=== PATIENT | female | born 1980 | race Caucasian/White ===

== ENCOUNTER → 2020-04-26 13:01 | Outpatient (CLI) | payer BC, SELFPAY ==
[2020-04-26 14:01] LABS: Free T4 (Free Thyroxine) 1.25 ng/dl (0.78-2.19)
[2020-04-26 14:15] LABS: Thyroid Stimulating Hormone 0.85 uIU/mL (0.465-4.68)
== END ==
PROVIDERS: Visit Provider Family Medicine
DX: E07.9 Disorder of thyroid, unspecified (principal)
CPT/HCPCS: 84439; 84443

== ENCOUNTER → 2021-03-19 13:31 | Outpatient (CLI) | payer BC, SELFPAY ==
--- NOTE | 2021-03-19 13:38 | XR_ITS ---
PROCEDURE: XR CHEST 2V CLINICAL HISTORY: SOA COMPARISON: No exams were available for comparison FINDINGS: The cardiomediastinal silhouette and pulmonary vascularity are within normal limits. The lungs are clear without infiltrates, suspicious nodules, or pleural effusions. No acute bony abnormalities. IMPRESSION: No acute findings. Dictated by: Kofi Cha MD 03/19/2021 14:14 Kofi Cha MD in [facility] 03/19/2021 14:14
== END ==
PROVIDERS: PCP Family Medicine; Visit Provider Nurse Practitioner Family
DX: R06.02 Shortness of breath (principal); J06.9 Acute upper respiratory infection, unspecified
CPT/HCPCS: 71046; 87070; 87186; 87205

== ENCOUNTER → 2021-06-26 18:16 | Outpatient (CLI) | payer BC, SELFPAY ==
[2021-06-26 19:21] LABS: Basophils % 0.5 % (0.1-2.0); Eosinophils # 0.3 K/mm3 (0.0-0.4); Eosinophils % 3.2 % (0.1-12.0); Hematocrit 38.6 % (37.0-47.0); Hemoglobin 12.6 g/dL (12.2-16.2); Lymphocytes # 2.7 K/mm3 (0.7-4.5); Lymphocytes % 33.7 % (10-50); Mean Corpuscular HGB Conc 32.7 g/dL (31.8-35.4); Mean Corpuscular Hemoglobin 31.9 pg (27.0-31.2); Mean Corpuscular Volume 97.5 fl (81-99); Mean Platelet Volume 10.1 fl (7.4-10.4); Monocytes # 0.4 K/mm3 (0.1-1.0); Monocytes % 4.4 % (1.7-9.3); Neutrophils # 4.6 K/mm3 (1.8-7.8); Neutrophils % 58.2 % (37.0-80.0); Platelet Count 339 K/mm3 (142-424); Red Blood Count 3.96 M/mm3 (4.20-5.40); Red Cell Distribution Width 14.1 % (11.5-17.5)
== END ==
PROVIDERS: Visit Provider Family Medicine
DX: E66.3 Overweight (principal); Z68.32 Body mass index [BMI] 32.0-32.9, adult
CPT/HCPCS: 85025

== ENCOUNTER → 2021-10-02 16:00 | Outpatient (CLI) | payer BC, SELFPAY ==
[2021-10-02 14:05] LABS: Chloride 99 mmol/L (98-107); Sodium 135 mmol/L (136-145)
[2021-10-02 14:06] LABS: Potassium 4.4 mmoL/L (3.5-5.1)
[2021-10-02 14:08] LABS: Alanine Aminotransferase 10 U/L (12-78); Albumin Level 4.5 g/dl (3.5-5.0); Alkaline Phosphatase 52 U/L (38-126); Anion Gap 11.4 mEq/L (5-15); Aspartate Amino Transferase 26 U/L (14-36); Bilirubin,Total 0.6 mg/dl (0.2-1.3); Blood Urea Nitrogen 9 mg/dl (7-17); Carbon Dioxide 29 mmol/L (22.0-30.0); Estimated Glomerular Filt Rate 79 ml/min (>60); GFR (African American) 96 ML/MIN (>60)
[2021-10-02 14:09] LABS: Albumin/Globulin Ratio 1.6 (1.1-1.8); Calcium 8.4 mg/dl (8.4-10.2); Globulin 2.9 g/dL (1.3-3.2); Glucose 87 mg/dl (74-100); Total Protein,Serum 7.4 g/dl (6.3-8.2)
[2021-10-02 14:18] LABS: Basophils % 0.3 % (0.1-2.0); Eosinophils # 0.3 K/mm3 (0.0-0.4); Eosinophils % 4.4 % (0.1-12.0); Hematocrit 42.4 % (37.0-47.0); Hemoglobin 13.9 g/dL (12.2-16.2); Lymphocytes # 1.6 K/mm3 (0.7-4.5); Lymphocytes % 28.3 % (10-50); Mean Corpuscular HGB Conc 32.8 g/dL (31.8-35.4); Mean Corpuscular Hemoglobin 31.5 pg (27.0-31.2); Mean Corpuscular Volume 96.2 fl (81-99); Mean Platelet Volume 8.4 fl (7.4-10.4); Monocytes # 0.4 K/mm3 (0.1-1.0); Monocytes % 6.5 % (1.7-9.3); Neutrophils # 3.5 K/mm3 (1.8-7.8); Neutrophils % 60.5 % (37.0-80.0); Platelet Count 378 K/mm3 (142-424); Red Blood Count 4.41 M/mm3 (4.20-5.40); Red Cell Distribution Width 13.5 % (11.5-17.5); White Blood Count 5.8 K/mm3 (4.8-10.8)
[2021-10-02 14:37] LABS: Thyroid Stimulating Hormone 0.12 uIU/mL (0.465-4.68)
[2021-10-04 09:05] LABS: Estradiol 92.1 pg/mL (.)
== END ==
PROVIDERS: Visit Provider Family Medicine
DX: N95.1 Menopausal and female climacteric states (principal)
CPT/HCPCS: 80053; 82670; 83001; 84443; 85025

== ENCOUNTER 2025-04-16 11:21 | Outpatient (CLI) | payer BC, SELFPAY ==
[2025-04-16 16:05] LABS: Alanine Aminotransferase 18 U/L (12-78); Albumin Level 4.2 g/dl (3.5-5.0); Albumin/Globulin Ratio 1.4 (1.1-1.8); Alkaline Phosphatase 75 U/L (38-126); Anion Gap 10.0 mEq/L (5-15); Aspartate Amino Transferase 31 U/L (14-36); Bilirubin,Total 0.4 mg/dl (0.2-1.3); Blood Urea Nitrogen 15 mg/dl (7-17); Calcium 9.1 mg/dl (8.4-10.2); Carbon Dioxide 27 mmol/L (22.0-30.0); Chloride 104 mmol/L (98-107); Cholesterol 237 mg/dl (140-200); Creatinine,Serum 0.80 mg/dl (0.52-1.04); Estimated Glomerular Filt Rate 78 ml/min (>60); GFR (African American) 94 ML/MIN (>60); Globulin 2.9 g/dL (1.3-3.2); Glucose 91 mg/dl (74-100); HDL Cholesterol 63 mg/dl (40-60); Potassium 4.0 mmoL/L (3.5-5.1); Sodium 137 mmol/L (136-145); Total Protein,Serum 7.1 g/dl (6.3-8.2); Triglycerides 114 mg/dl (30-150)
[2025-04-16 16:38] LABS: Hematocrit 36.2 % (37.0-47.0); Hemoglobin 11.4 g/dL (12.2-16.2); Immature Granulocytes % 0.3 %; Mean Corpuscular HGB Conc 31.5 g/dL (31.8-35.4); Mean Corpuscular Hemoglobin 27.5 pg (27.0-31.2); Mean Corpuscular Volume 87.2 fl (81-99); Nucleated Red Blood Cells % 0 %; Platelet Count 340 K/mm3 (142-424); Red Blood Count 4.15 M/mm3 (4.20-5.40); Red Cell Distribution Width-SD 46.7 fL; White Blood Count 6.5 K/mm3 (4.8-10.8)
--- OUTSIDE RECORDS SUMMARY | 2025-04-17 09:26 | XMS_ITS | Clinical Summary ---
Author Organization [facility] Address [address] [place] [address] Care Team Providers Care Inspector Packer Name Role Phone Matt Vaughan MD Primary Care Provider [phone] Allergies Active Allergy Reactions Criticality Noted Date Comments Gabapentin Other - please docum ent in the comment field Low 04/25/2015 made me crazy Hydrochlorothiazide Unknown - Patient st ates they do not know rxn details Low 04/25/2015 Montelukast Other - please docum ent in the comment field Low 04/25/2015 made me crazy Pickled Meat Anaphylaxis High 05/24/2024 Medications ALPRAZolam (Xanax) 2 MG tablet Take 1 tablet (2 mg) by mouth at night if needed. 05/09/2024 Active butalbital-acet aminophen-caffe ine 50-325-40 MG tablet Take 1 tablet by mouth if needed. 02/23/2024 Active FLUoxetine (PROzac) 60 MG tablet Take 1 tablet (60 mg) by mouth 1 (one) time each day. 05/18/2024 Active furosemide (Lasix) 40 MG tablet Take 1 tablet (40 mg) by mouth 1 (one) time each day if needed. 10/13/2023 Active methylphenidate (Concerta) 18 MG ER tablet Take 1 tablet (18 mg) by mouth 1 (one) time each day in the morning. 05/18/2024 Active omeprazole (PriLOSEC) [address] capsule Take 1 capsule (20 mg) by mouth 1 (one) time each day. 05/15/2024 Active potassium chloride CR 10 MEQ PO ER tablet Take 1 tablet (10 mEq) by mouth 1 (one) time each day if needed (when taking furosemide). Active traZODone (Desyrel) 50 MG tablet Take 1 tablet (50 mg) by mouth at night if needed. 05/18/2024 Active valACYclovir (Valtrex) 1 g tablet Take 1 tablet (1,000 mg) by mouth 1 (one) time each day if needed. Active loratadine (Claritin) 10 MG tablet Take 1 tablet (10 mg) by mouth 1 (one) time each day if needed. Active levothyroxine (Synthroid) 75 MCG tablet Take 1 tablet (75 mcg) by mouth Daily. Active apixaban (Eliquis) 5 MG tablet Take 2 tablets (10 mg) by mouth 2 (two) times a day for 5 days, THEN 1 tablet (5 mg) 2 (two) times a day. 370 tablet 05/26/2024 Active Active Problems Problem Noted Date Diagnosed Date Obesity (BMI 35.0-39.9 without comorbidity) 05/09 Severe obesity (BMI 35.0-39.9) with comorbidity 05/24/2024 Chest pain 05/24/2024 Social History Tobacco Use Types Packs/Day Years Used Date Smoking Tobacco: Former Cigarettes Tobacco Cessation:Counseling Given: Not Answered Comments Unknown Sex and Gender Information Value Date Recorded Sex Assigned at Not on file Legal Sex Female 8:54 PM EDT Gender Identity Not on file Sexual Orientation Not on file Last Filed Vital Signs Vital Sign Reading Time Taken Comments Blood Pressure 122/54 05/26/2024 1:00 PM EDT Pulse 78 05/26/2024 1:00 PM EDT Temperature 36.9 C (98.4 F) 05/26/2024 11:36 AM EDT Respiratory Rate 14 05/26/2024 1:00 PM EDT Oxygen Saturation 92% 05/26/2024 1:00 PM EDT Inhaled Oxygen Concentration - - Weight 107 kg (236 lb 8.9 oz) 05/26/2024 3:26 AM EDT Height 172.7 cm (5' 8 ) 05/24/2024 10:59 AM EDT Body Mass Index 35.97 05/24/2024 10:59 AM EDT Plan of Treatment Health Maintenance Due Date Last Done Comments [facility]-Depression Screening 1980 [facility]-HIV Screening 1980 [facility]-Hepatitis C Screening 1980 [facility]-/Child/Adol SDOH Screenings 1980 [facility]-Varicella Vaccines (1 of 2 - 13+ 2-dose series) 1993 [facility]-DTaP,Tdap,and Td Vaccine s (2 - Tdap) 02/26/1996 02/25/1996 [facility]- SDOH Screenings 1998 [facility]-Adult SDOH Screenings 1998 [facility]-Pap Smear 2001 HPV Vaccines (1 - 3-dose SCD M series) 2007 [facility]-Cervical Cancer Screening 2010 [facility]-HPV/Cotest 2010 [id number]-18 Vaccine (2 - Carmina risk series) 08/05/2021 07/08/2021 [facility]-Influenza Vaccine (#1) 2025 [facility]-Zoster Vaccines (1 of 2) 2030 [facility]-Hepatitis B Vaccines Completed 001, 10/19/2000, 09/21/2000 [facility]-Pneumococcal Vaccine: Pediatrics (0 to 5 Years) and At-Risk Patients (6 to 49 Years) Aged Out 01/31/2008 No longer eligible b ased on patient's age to complete this topic [facility]-Obesity Intervention Completed 05/24/2024 [facility]-HIB Vaccines Aged Out No longer e ligible based on patient's age to complete this topic [facility]-Hepatitis A Vaccines Aged Out No longer eligible based on patient's age to complete this topic [facility]-IPV Vaccines Aged Out No longer e ligible based on patient's age to complete this topic [facility]-Rotavirus Vaccines Aged Out No lo nger eligible based on patient's age to complete this topic Insurance [employer] Advance Directives * Full Code (Latest Code Status on File) Date Activated Date Inactivated Comments 05/24/2024 11:46 AM 05/26/2024 7:32 PM Question Answer Comments Patient has decision-making capacity? Yes Care Teams Inspector Packer Relationship Specialty Start Date End Date Matt Vaughan MD [address] [place] [address] PCP - General 04/24/24
--- OUTSIDE RECORDS SUMMARY | 2025-04-17 09:26 | XMS_ITS | Clinical Summary ---
Author Organization [facility] Address [address] [place] [address] Care Team Providers Care Bottling Equipment Sales Representative Name Role Phone Unknown, Attending Provider Primary Care Provide r Unavailable Source Comments This information has been disclosed to you from confidential records protectedfrom disclosure by state law. You shall make no further disclosure of thisinformation without the specific, written, and informed release of theindividual to whom it pertains, or as otherwise permitted by law. A generalauthorization for the release of medical or other information is not sufficientfor the purposes of therelease of HIV test results or diagnoses. [id number] Health Encounters Date Type Department Care Team Description 02/20/2025 Orders Only [facility] [address] [place] [id number] Jennifer Wong MD Anisocoria (Primary Dx); Nonintractable headache, unspecified chronicity pattern, unspecified headache type from Last 3 Months Social History Tobacco Use Types Packs/Day Years Used Date Smoking Tobacco: Never Assessed Comments Unknown Sex and Gender Information Value Date Recorded Sex Assigned at Not on file Legal Sex Female 11:07 PM EST Gender Identity Not on file Sexual Orientation Not on file Plan of Treatment Not on file Insurance [employer] Care Teams Bottling Equipment Sales Representative Relationship Specialty Start Date End Date Unknown, Attending Provider PCP - General 02/20/25
--- OUTSIDE RECORDS SUMMARY | 2025-04-17 09:26 | XMS_ITS | Encounter Summary ---
Author Organization [facility] Address [address] [place] [address] Care Team Providers Care Revising Clerk Name Role Phone Unknown, Attending Provider Primary Care Provide r Unavailable Source Comments This information has been disclosed to you from confidential records protectfrom disclosure by state law. You shall make no further disclosure of thisinformation without the specific, written, and informed release of theindividual to whom it pertains, or as otherwise permitted by law. A generalauthorization for the release of medical or other information is not sufficientfor the purposes of the release of HIV test results or diagnoses. [id number] Reason for Referral * Imaging/Cardiovascular Scan (Routine) - New Request Specialty Diagnoses / Procedures Referred By Contac t Referred To Contact Radiology Diagnoses Anisocoria Nonintractable headache, unspecified chronicity pattern, unspecified headache type Procedures MRI Head W WO contrast Jennifer Wong MD [address] [place] [address] Phone: tel: fax: Referral ID Status Reason Start Date Expiration Date V isits Requested Visits Authorized [id number] New Request 02/20/2025 08/19/2025 1 1 * Imaging/Cardiovascular Scan (Routine) - New Request Specialty Diagnoses / Procedures Referred By Contac t Referred To Contact Radiology Diagnoses Anisocoria Nonintractable headache, unspecified chronicity pattern, unspecified headache type Procedures MRI Angio Head Without contrast Arterial Jennifer Wong MD [address] [place] [address] Phone: tel: fax: Referral ID Status Reason Start Date Expiration Date V isits Requested Visits Authorized [id number] New Request 02/20/2025 08/19/2025 1 1 Encounter Details Date Type Department Care Team (Late st Contact Info) Description 02/20/2025 Orders Only [facility] [address] [place] [phone] Jennifer Wong MD [address] [place] [address] Anisocoria (Primary Dx); Nonintractable headache, unspecified chronicity pattern, unspecified headache type Social History Tobacco Use Types Packs/Day Years Used Date Smoking Tobacco: Never Assessed Comments Unknown Sex and Gender Information Value Date Recorded Sex Assigned at Not on file Legal Sex Female 11:07 PM EST Gender Identity Not on file Sexual Orientation Not on file documented as of this encounter Plan of Treatment Scheduled Orders Name Type Priority Associated Diagnoses Orde r Schedule MRI Angio Head Without contrast Arterial Imaging Routine Anisocoria Nonintractable headache, unspecified chronicity pattern, unspecified headache type 1 Occurrences starting 02/20/2025 until 09/04/2025 MRI Head W WO contrast Imaging Routine Anisocoria Nonintractable headache, unspecified chronicity pattern, unspecified headache type 1 Occurrences starting 02/20/2025 until 09/04/2025 documented as of this encounter Visit Diagnoses Diagnosis Anisocoria- Primary Nonintractable headache, unspecified chronicity pattern, unspecified headache type documented in this encounter Care Teams Revising Clerk Relationship Specialty Start Date End Date Unknown, Attending Provider PCP - General 02/20/25 documented as of this encounter
--- OUTSIDE RECORDS SUMMARY | 2025-04-17 09:27 | XMS_ITS | Clinical Summary ---
Author Organization [facility] Address [address] [place] [id number] Care Team Providers Care Advertising Teacher Name Role Phone Matt Vaughan MD Primary Care Provider [phone] Encounters Date Type Department Care Team Description 04/17/2025 Travel from Last 3 Months Social History Tobacco Use Types Packs/Day Years Used Date Smoking Tobacco: Never Assessed Comments Unknown Sex and Gender Information Value Date Recorded Sex Assigned at Not on file Legal Sex Female 2:24 PM EDT Gender Identity Not on file Sexual Orientation Not on file Plan of Treatment Upcoming Encounters Date Type Department Care Team (Late st Contact Info) Description 04/17/2025 10:00 AM EDT Office Visit [facility] [address] [facility] [address] [place] [address] Yuko Valladares, CATIE [address] [facility] [address] [place] [address] Health Maintenance Due Date Last Done Comments ANNUAL PHYSICAL 1980 Annual Gynecologic Pelvic an d Breast Exam 1980 HEPATITIS C SCREENING 1980 TDAP/TD VACCINES (1 - Tdap) 1999 PAP SMEAR 2001 MAMMOGRAM 2020 COVID-19 Vaccine (2023-2 5 season) 2025 INFLUENZA VACCINE 05/09/2025 Pneumococcal Vaccine 0-49 Aged Out No longer eligible based on patient's age to complete this topic Insurance [facility] PPO Care Teams Advertising Teacher Relationship Specialty Start Date End Date Matt Vaughan MD [address] [place] [id number] PCP - General Family Medicine 03/21/25
--- OUTSIDE RECORDS SUMMARY | 2025-04-17 09:27 | XMS_ITS | Clinical Summary ---
Author Organization [facility] Address [address] [place] [id number] Care Team Providers Care Loom Setter Fourdrinier Name Role Phone Jelena Montes Primary Care Provider [phone] Allergies Active Allergy Reactions Criticality Noted Date Comments Gabapentin 04/25/2015 made me crazy Hydrochlorothiazide 04/25/2015 Montelukast 04/25/2015 made me crazy Medications HYDROCODONE/ACETAM INOPHEN (NORCO PO) Take by mouth. Active loratadine (CLARITIN) 10 mg tablet Take 10 mg by mouth daily. Active calcium polycarbophil (FIBERCON) 625 mg Tablet Take 625 mg by mouth daily. Active VALACYCLOVIR HCL (VALTREX PO) Take by mouth. Active IBUPROFEN PO Take by mouth. Active Social History Tobacco Use Types Packs/Day Years Used Date Smoking Tobacco: Every Day Cigarettes Alcohol Use Standard Drinks/Week Comments Yes 0 (1 standard drink = 0.6 oz pur e alcohol) occ Comments No Sex and Gender Information Value Date Recorded Sex Assigned at Not on file Legal Sex Female 3:41 PM EDT Gender Identity Not on file Sexual Orientation Not on file Last Filed Vital Signs Vital Sign Reading Time Taken Comments Blood Pressure 126/77 04/25/2015 9:42 PM EDT Pulse 66 04/25/2015 9:42 PM EDT Temperature 36.6 C (97.9 F) 04/25/2015 4:21 PM EDT Respiratory Rate 16 04/25/2015 9:42 PM EDT Oxygen Saturation 99% 04/25/2015 9:42 PM EDT Inhaled Oxygen Concentration - - Weight 86.2 kg (190 lb) 04/25/2015 5:03 PM EDT Height 172.7 cm (5' 8 ) 04/25/2015 5:03 PM EDT Body Mass Index 28.89 04/25/2015 5:03 PM EDT Plan of Treatment Not on file Insurance AN[employer]M Care Teams Loom Setter Fourdrinier Relationship Specialty Start Date End Date Jelena Montes PA [address] [facility] [address] [place] [address] PCP - General 04/25/15
== END 2025-04-16 23:59 ==
LOC: LAB.DROPOF 04-17 09:16
PROVIDERS: PCP Nurse Practitioner; Visit Provider Nurse Practitioner
DX: I50.9 Heart failure, unspecified (principal); U07.1 COVID-19; I43 Cardiomyopathy in diseases classified elsewhere; E66.9 Obesity, unspecified; F41.9 Anxiety disorder, unspecified
CPT/HCPCS: 80053; 80061; 85025